=== PATIENT | male | born 1960 | race Caucasian/White ===

== ENCOUNTER → 2017-05-21 | Outpatient (CLI) | payer OTHER ==
[2017-05-21 14:33] LABS: BUN 12 mg/dL (7-18)
[2017-05-21 14:41] LABS: GFR (ESTIMATED) 87 ML/MIN (>60)
[2017-05-21 16:57] LABS: HEMOGLOBIN 16.2 g/dL (14.1-18.0)
[2017-05-21 16:58] LABS: LYMPH # 1.9 K/mm3 (0.7-4.5); LYMPH % 28.6 % (10-50)
[2017-05-23 05:39] LABS: Vitamin B12 >2000 pg/mL (211-946)
[2017-05-23 06:40] LABS: Vitamin D, 25-Hydroxy 33.7 ng/mL (30.0-100.0)
[2017-05-24 14:41] LABS: Testosterone, Total, LC/MS 13.5 ng/dL (264.0-916.0)
== END ==
LOC: CARL-LAB 06:57
PROVIDERS: Internal Medicine Endocrinology, Diabetes & Metabolism
DX: E11.65 Type 2 diabetes mellitus with hyperglycemia (principal); E29.1 Testicular hypofunction; I10 Essential (primary) hypertension